=== PATIENT | male | born 1960 | race African-American/Black ===

== ENCOUNTER 2016-10-10 14:44 | Emergency (ER) | payer OTHER ==
[~2016-10-10] VITALS: Ht 177.8 cm; Wt 86.0 kg
[~2016-10-10 14:44] MED LIST: aspirin; hctz; metoprol; metoprolol; vitamins
[2016-10-10 15:13] VITALS: BP 181/101
[2016-10-10] MEDS ORDERED: FLAX100017 PO (15:17)
[2016-10-10] MEDS ORDERED: AMLO-512 PO (15:17)
[2016-10-10] MEDS ORDERED: THIA100 PO (15:17)
[2016-10-10] MEDS ORDERED: OMEP20 PO (15:17)
[2016-10-10] MEDS ORDERED: METO25 PO (15:17)
[2016-10-10] MEDS ORDERED: ASPI-556 PO (15:17)
[2016-10-10] MEDS ORDERED: VALS160T2 PO (15:17)
[2016-10-10] MEDS ORDERED: FERR-89 PO (15:17)
[2016-10-10] MEDS ORDERED: OMEG-53 PO (15:17)
[2016-10-10] MEDS ORDERED: FLUT16H NASAL (15:17)
== END 2016-10-10 17:21 | disposition left against medical advice (07) ==
LOC: EMS 14:46
DX: I10 Essential (primary) hypertension (principal); R04.0 Epistaxis; F17.210 Nicotine dependence, cigarettes, uncomplicated; F12.90 Cannabis use, unspecified, uncomplicated; Z53.21 Procedure and treatment not carried out due to patient leaving prior to being seen by health care provider
CPT/HCPCS: 93005